=== PATIENT | female | born 1990 | race African-American/Black ===

== ENCOUNTER 2019-05-30 08:54 | Emergency (ER) | payer OTHER, SELFPAY ==
--- NOTE | ~2019-05-30 | XR_ITS ---
EXAMINATION: XR chest 2V EXAM DATE: 05/30/2019 09:28 INDICATION: Cough for 3 weeks. TECHNIQUE: Frontal and lateral projections of the chest obtained and reviewed. There is no prior radha dy for comparison. FINDINGS: The lungs are clear. There are no pleural effusions. The cardiomediastinal silhouette is within normal limits. There is no pneumothorax suspected. The bones and soft tissues are unremarkab le. IMPRESSION: Normal chest x-ray exam. Reviewed, dictated and finalized at location [facility] IMPRESSION: Normal chest x-ray exam.
[2019-05-30 09:10] VITALS: BP 120/61; PULSE 64; RESP 16; TEMP 36.6; O2SAT 100
--- NOTE | 2019-05-30 09:43 | ED.URI ---
HPI - URI/Sore Throat General Chief Complaint: Upper Respiratory Infection Stated Complaint: Asthma Source: patient Mode of arrival: ambulatory Limitations: no limitations History of Present Illness HPI Narrative: Patient is a 29-year-old female who presents complaining of cough x3 weeks. Patient reports a history of asthma and does not have inhaler or nebulizer. She recently finished Augmentin for possible pneumonia. She denies fever, chills or body aches, or chest pain. MD elicited complaint: cough Related Data Allergies Allergy/AdvReac Type Severity Reaction Status Date / Time No Known Allergies Allergy Verified 05/30/19 09:19 Review of Systems Review of Systems: Narrative: CONSTITUTIONAL: Denies fever, chills, or sweats. EYES: Denies visual changes, redness, or discharge. ENT: Denies rhinorrhea, congestion, sore throat, or otalgia. CARDIOVASCULAR: Denies chest pain, palpitations, or edema. RESPIRATORY: Reports cough and wheezing GASTROINTESTINAL: Denies abdominal pain, nausea, vomiting, or diarrhea. GENITOURINARY: Denies dysuria or hematuria. SKIN: Denies rash or itching. MUSCULOSKELETAL: Denies back pain, joint pain, or myalgia. NEUROLOGIC: Denies headache, numbness, dizziness, or weakness. PSYCHIATRIC: Denies anxiety or depression. [facility] Past Medical History Medical History (Updated 05/30/19 @ 09:51 by MEGAN Presley) Asthma DVT (deep vein thrombosis) in Pulmonary embolism UTI (urinary tract infection) Surgical History Surgical History (Updated 05/30/19 @ 09:46 by MEGAN Presley) No pertinent past surgical history Social History Social History (Updated 05/30/19 @ 09:47 by MEGAN Presley) Smoking status: Never smoker Alcohol intake: never Substance use: never Living arrangements: with family Occupation/Education: unemployed Exam Narrative: Exam Narrative: GENERAL: Well-appearing, well-nourished, and in no acute distress. HEAD: Normocephalic, atraumatic. EYES: EOMI. No redness or drainage. Conjunctiva are normal. ENT: Mucous membranes pink and moist. Nares clear. No rhinorrhea. TMs normal bilaterally. Throat normal. Uvula midline. NECK: AROM. Supple. No lymphadenopathy. CHEST: No respiratory distress. Cough noted, intermittent expiratory wheeze HEART: Regular rate and rhythm. No murmur appreciated. Normal peripheral pulses. GI: Soft, nontender without rebound, or guarding. No distention. Bowel sounds normal in all quadrants. MUSCULOSKELETAL: No bony tenderness. EXTREMITIES: Normal range of motion. No edema. SKIN: Warm, dry, no rash. NEURO: No focal deficits. Alert and oriented x3. Gait steady. PSYCH: Normal affect. No signs of depression or anxiety. Course Vital Signs Vital signs: Vital Signs Temperature 36.6 C 05/30/19 09:10 Pulse Rate 64 05/30/19 09:10 Respiratory Rate 16 05/30/19 09:10 Blood Pressure 120/61 05/30/19 09:10 Pulse Oximetry 100 05/30/19 09:10 Temperature 36.6 C 05/30/19 09:10 Pulse Rate 64 05/30/19 09:10 Respiratory Rate 16 05/30/19 09:10 Blood Pressure 120/61 05/30/19 09:10 Pulse Oximetry 100 05/30/19 09:10 MDM - URI/Sore Throat MDM Narrative Medical decision making narrative: Patient's chest x-ray was negative. Patient does not have fever. Patient's lung sounds are clear with intermittent expiratory wheezes noted. Cough noted. Patient most likely having asthma exacerbation. Patient to be started on steroids, and Tessalon. Patient's inhaler and nebulizer to be refilled. Patient is instructed to follow-up with her PCP Dr. Palomares as soon as possible for further evaluation of her asthma. Patient is stable for discharge to home with outpatient follow-up. Differential Diagnosis Differential diagnosis: Likely upper respiratory infection, viral infection and bronchitis Medical Records Attestation: I reviewed the patient's medical records. Critical Care Time Critical Care Ti
== END 2019-05-30 09:59 | disposition home or self-care (01) ==
PROVIDERS: Emergency Provider Nurse Practitioner
DX: J06.9 Acute upper respiratory infection, unspecified (principal); J45.901 Unspecified asthma with (acute) exacerbation; Z86.718 Personal history of other venous thrombosis and embolism; Z86.711 Personal history of pulmonary embolism
CPT/HCPCS: 71046; 99213; G0463

== ENCOUNTER 2023-06-01 10:35 | Emergency (ER) | payer OTHER, SELFPAY ==
[2023-06-01 10:53] VITALS: BP 112/56; PULSE 63; RESP 16; TEMP 36.8; O2SAT 100
--- NOTE | 2023-06-01 11:37 | ED.FEMALEGU ---
HPI - Female Genitourinary General Chief complaint: Urogenital-Female Stated complaint: UTI/Right Shoulder Pain Time Seen by Provider: 06/01/23 11:37 Source: patient Mode of arrival: ambulatory Limitations: no limitations History of Present Illness HPI Narrative: 33-year-old female presents with complaint of right shoulder pain for 2-3 days. Started after she took dileep down from her hair. Patient states she had arms up in the air for over an hour to undo her dileep. Patient also reports urinary frequency, urgency, dysuria for the past week. No abdominal or back pain. Afebrile. All systems reviewed and negative except as noted above. Related Data Allergies Allergy/AdvReac Type Severity Reaction Status Date / Time No Known Allergies Allergy Verified 06/01/23 11:06 Review of Systems Review of Systems: CONSTITUTIONAL: Denies fever, chills, or sweats. EYES: Denies visual changes, redness, or discharge. ENT: Denies rhinorrhea, congestion, sore throat, or otalgia. CARDIOVASCULAR: Denies chest pain, palpitations, or edema. RESPIRATORY: Denies cough or dyspnea. GASTROINTESTINAL: Denies abdominal pain, nausea, vomiting, or diarrhea. GENITOURINARY: Reports dysuria, frequency. Denies hematuria. SKIN: Denies rash or itching. MUSCULOSKELETAL: Denies back pain or myalgia. Reports right shoulder pain. NEUROLOGIC: Denies headache, numbness, or weakness. PSYCHIATRIC: Denies anxiety or depression. All other systems reviewed are negative, except as documented in HPI. PMFSH Past Medical History Medical History (Updated 06/01/23 @ 11:48 by Jonelle Fernando NP) Asthma DVT (deep vein thrombosis) in Pulmonary embolism UTI (urinary tract infection) Surgical History Surgical History (Updated 05/30/19 @ 09:46 by Nilsa Mejia, MEGAN) No pertinent past surgical history Social History Social History (Updated 05/30/19 @ 09:47 by Nilsa Mejia, MEGAN) Smoking status: Never smoker Alcohol intake: never Substance use: never Living arrangements: with family Occupation/Education: unemployed Comments At time of signature, agree with nursing past medical, surgical, social and family history. There is no relevant family history pertinent to the presenting complaint. Exam Narrative: GENERAL: This is a well-nourished, well-developed patient, in no apparent distress. HEAD: normocephalic, atraumatic. EYES: PERRL. Sclera clear/white. Vision is grossly intact. EARS: External ears normal NOSE: External nose normal NECK: Neck supple, non-tender without lymphadenopathy, masses or thyromegaly. CARDIOVASCULAR: Regular rate and rhythm without murmurs, gallops, or rubs. RESPIRATORY: Clear to auscultation. Breath sounds equal bilaterally. No wheezes, rales, or rhonchi. SKIN: warm, Dry, intact with no suspicious lesions or rash, good texture and turgor. NEURO: awake, alert, and oriented to person, place and time. There were no obvious focal neurologic abnormalities. EXTREMITIES: generalized tenderness to right shoulder. No swelling noted. Distal neurovascularly intact. Range of motion normal but patient appears to be in pain with movement. Course Course Level of Care: Express Care Visit Vital Signs Vital signs: Vital Signs Temperature 36.8 C 06/01/23 10:53 Pulse Rate 63 06/01/23 10:53 Respiratory Rate 16 06/01/23 10:53 Blood Pressure 112/56 L 06/01/23 10:53 Pulse Oximetry 100 06/01/23 10:53 Oxygen Delivery Room Air 06/01/23 10:53 Temperature 36.8 C 06/01/23 10:53 Pulse Rate 63 06/01/23 10:53 Respiratory Rate 16 06/01/23 10:53 Blood Pressure 112/56 L 06/01/23 10:53 Pulse Oximetry 100 06/01/23 10:53 Oxygen Delivery Room Air 06/01/23 10:55 Reviewed MDM - Female Genitourinary MDM Narrative Medical decision making narrative: patient's urinalysis normal today. 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
== END 2023-06-01 11:57 | disposition home or self-care (01) ==
PROVIDERS: Emergency Provider Nurse Practitioner Family
DX: M77.8 Other enthesopathies, not elsewhere classified (principal); R35.0 Frequency of micturition; J45.909 Unspecified asthma, uncomplicated; Z86.718 Personal history of other venous thrombosis and embolism; Z86.711 Personal history of pulmonary embolism
CPT/HCPCS: 81003; 99213; G0463

== ENCOUNTER 2023-07-30 08:39 | Emergency (ER) | payer OTHER, SELFPAY ==
--- NOTE | 2023-07-30 08:48 | ED.URI ---
HPI - URI/Sore Throat General Chief Complaint: Upper Respiratory Infection Stated Complaint: wheezing,SOB,cough,body aches Time Seen by Provider: 07/30/23 09:25 Source: patient and RN notes reviewed Mode of arrival: ambulatory Limitations: no limitations History of Present Illness HPI Narrative: 33-year-old female with history of asthma presents with concern for cough, wheezing, shortness of breath, body aches. Reports she has been using her albuterol inhaler 4-5 times daily, she last used it 2 hours ago. She reports hoarse voice. She reports fever. MD elicited complaint: cough Related Data Home Medications Medication Instructions Recorded Confirmed fluticasone propionate 50 See Rx Instructions .Route .COMPLEX 07/30/23 07/30/23 mcg/actuation nasal spray,suspension Allergies Allergy/AdvReac Type Severity Reaction Status Date / Time No Known Allergies Allergy Verified 07/30/23 08:40 Review of Systems Review of Systems: CONSTITUTIONAL: Reports malaise, fever. EYES: Denies visual changes, redness, or discharge. ENT: Reports rhinorrhea, congestion, sinus pain CARDIOVASCULAR: Denies chest pain, palpitations, or edema. RESPIRATORY: Reports cough, wheezing, dyspnea. GASTROINTESTINAL: Denies abdominal pain, nausea, vomiting, diarrhea SKIN: Denies rash or itching. MUSCULOSKELETAL: Reports myalgia. NEUROLOGIC: Denies headache. All systems reviewed & are unremarkable except as noted in HPI and below PMFSH Past Medical History Medical History (Updated 07/30/23 @ 09:37 by Zaynab Caputo NP) Asthma DVT (deep vein thrombosis) in Pulmonary embolism UTI (urinary tract infection) Surgical History Surgical History (Updated 05/30/19 @ 09:46 by Nilsa Mejia, BRASS FINISHER) No pertinent past surgical history Social History Social History (Updated 05/30/19 @ 09:47 by Nilsa Mejia, BRASS FINISHER) Smoking status: Never smoker Alcohol intake: never Substance use: never Living arrangements: with family Occupation/Education: unemployed Comments At time of signature, agree with nursing past medical, surgical, social and family history. There is no relevant family history pertinent to the presenting complaint Exam Narrative: GENERAL: Well-appearing, well-nourished, and in no acute distress. HEAD: Normocephalic EYES: PERRLA, conjunctivae clear ENT: Nares clear, turbinates edematous and erythematous, clear discharge. Mucous membranes moist. TM pearly arrieta with dull light reflex bilaterally; no tragal tenderness. Oropharynx not erythematous without lesions. Tonsils not enlarged and without exudate, no drooling, no hoarseness, no trismus, uvula midline. NECK: Supple. No lymphadenopathy CHEST: Scattered wheeze, otherwise Clear to auscultation, breath sounds equal. No rhonchi, rales, or stridor. No respiratory distress, speaks in full sentences. HEART: Regular rate and rhythm. No murmur heard. SKIN: Warm, dry, no rash. NEURO: Alert and oriented x3. PSYCH: Normal mood and affect Course Course Emergency Course: Patient is aware of diagnosis, understands and agrees to treatment plan. Anticipatory guidance given. Patient agrees to follow-up as directed and is aware of reasons to seek care at the emergency department. Portions of this record may have been created with voice recognition software Level of Care: Express Care Visit Vital Signs Vital signs: Reviewed. MDM - URI/Sore Throat MDM Narrative Medical decision making narrative: Differential diagnosis considered: Rodriguez virus, strep pharyngitis, allergic rhinitis, upper respiratory tract infection, sinusitis, rhinosinusitis, nasopharyngitis. viral pharyngitis, otitis media, otitis externa, pneumonia, bronchitis, viral cough syndrome, viral syndrome, and influenza. Exam findings show no acute concerns or changes; patient is non-toxic appearing and is in no distress. Patient is appropriate for outpatient treatment and follow-up. Lab Data
[2023-07-30 08:59] VITALS: BP 119/75; PULSE 75; RESP 16; TEMP 36.4; O2SAT 99
== END 2023-07-30 09:46 | disposition home or self-care (01) ==
PROVIDERS: Emergency Provider Nurse Practitioner
DX: J40 Bronchitis, not specified as acute or chronic (principal); Z20.822 Contact with and (suspected) exposure to COVID-19; J45.909 Unspecified asthma, uncomplicated; Z86.718 Personal history of other venous thrombosis and embolism; Z86.711 Personal history of pulmonary embolism
CPT/HCPCS: 87081; 87426; 87804; 87880; 99213; G0463

== ENCOUNTER 2024-09-12 12:44 | Emergency (ER) | payer OTHER, SELFPAY ==
--- NOTE | 2024-09-12 12:51 | ED_ITS ---
HPI - Headache General Chief Complaint: Headache Stated Complaint: shortness of breath/head ache Related Data Home Medications ?Medication ?Instructions ?Recorded ?Confirmed ?Last Taken ?Type fluticasone propionate 50 See Rx Instructions .Route .COMPLEX 07/30/23 07/30/23 Unknown History mcg/actuation nasal spray,suspension Allergies Allergy/AdvReac Type Severity Reaction Status Date / Time No Known Allergies Allergy Verified 07/30/23 08:40 [facility] Past Medical History Medical History (Updated 07/31/23 @ 00:01 by Saji Alvarez) UTI (urinary tract infection) Pulmonary embolism Asthma DVT (deep vein thrombosis) in Surgical History Surgical History (Updated 05/30/19 @ 09:46 by Nilsa Mejia, APPLICATION HELPER) No pertinent past surgical history Social History Social History (Updated 05/30/19 @ 09:47 by Nilsa Mejia, APPLICATION HELPER) Smoking status: Never smoker Alcohol intake: never Substance use: never Living arrangements: with family Occupation/Education: unemployed Discharge Plan Discharge Patient Language: Nepali Prescriptions: No Action albuterol sulfate 90 mcg/actuation HFA aerosol inhaler 2 puff INHALATION QID PRN (Reason: shortness of breath or wheezing) Qty: 6.7 0RF albuterol sulfate 5 mg/mL solution for nebulization 2.5 mg INHALATION Q6H PRN (Reason: shortness of breath or wheezing) Qty: 20 0RF fluticasone propionate 50 mcg/actuation spray,suspension See Rx Instructions .ROUTE .COMPLEX Rx Instructions: Rx albuterol sulfate 2.5 mg /3 mL (0.083 %) solution for nebulization 2.5 mg inhalation Q4H PRN (Reason: shortness of breath or wheezing) Qty: 75 0RF methylprednisolone [Medrol (Delon)] 4 mg tablets,dose pack See Rx Instructions .ROUTE .COMPLEX Qty: 21 0RF Rx Instructions: orally per package directions albuterol sulfate 90 mcg/actuation HFA aerosol inhaler 2 puff INHALATION QID PRN (Reason: shortness of breath or wheezing) Qty: 8.5 0RF Follow-up/Referrals: Jelani,Blanka [Other]
--- NOTE | 2024-09-12 12:53 | ED_ITS ---
HPI - General Adult General Chief complaint: Headache Stated complaint: shortness of breath/head ache Source: patient, RN notes reviewed and old records reviewed Mode of arrival: ambulatory Limitations: no limitations History of Present Illness HPI narrative: 34-year-old female presents to the [facility] with concerns of 1 week of cough, right-sided chest discomfort, tightness. Patient with a history of asthma. Denies fevers. Reports that she was seen on September 05 at [facility], reports she had a workup for a PE which she reports is negative Has apt with PCM 09/15 Related Data Home Medications ?Medication ?Instructions ?Recorded ?Confirmed ?Last Taken ?Type fluticasone propionate 50 See Rx Instructions .Route .COMPLEX 07/30/23 07/30/23 Unknown History mcg/actuation nasal spray,suspension Allergies Allergy/AdvReac Type Severity Reaction Status Date / Time No Known Allergies Allergy Verified 09/12/24 13:03 Review of Systems Review of Systems: All systems reviewed & are unremarkable except as noted in HPI and below Constitutional: Constitutional: Reports no additional constitutional complaints ENT: Reports system reviewed and no additional complaints, except as documented Cardiovascular: Cardiovascular: Reports no additional cardiovascular complaints, Denies chest pain and Denies dyspnea Respiratory: Respiratory: Reports as per HPI, Denies chest congestion, Reports cough, Reports pain with cough and Reports dyspnea Musculoskeletal: Musculoskeletal: Reports no additional musculoskeletal complaints Integumentary/Breasts: Skin/Breast: Reports system reviewed and no additional complaints, except as docu PMFSH Past Medical History Medical History UTI (urinary tract infection) Pulmonary embolism Asthma DVT (deep vein thrombosis) in Surgical History Surgical History No pertinent past surgical history Social History Social History Smoking status: Never smoker Alcohol intake: never Substance use: never Living arrangements: with family Occupation/Education: unemployed Comments At the time of my signature, I reviewed and agree with the nursing past medical, surgical, social, and family history. There is no relevant family history pertinent to the patient complaint. Exam Const: General: cooperative, healthy appearing, comfortable, no acute distress, well developed, alert and well nourished Nutritional Appearance: well nourished Orientation/consciousness: patient oriented x3 Limitations: no limitations HENMT: Head: normal to inspection Ears: hearing grossly normal bilaterally, external ears normal, TM's normal bilaterally, EAC's normal, mastoids normal and no periauricular adenopathy Mouth: Yes Normal oral and palatal mucosa present, Yes lip normal, Yes tongue normal and Yes moist mucous membranes Throat: posterior oropharynx normal, uvula midline and no uvular edema Eyes: General: appearance normal, both eyes and all related structures Alignment and Position: alignment normal Neck: Neck: normal visual inspection, full ROM, no lymphadenopathy and no meningeal signs Chest: Chest palpation & inspection: normal inspection of the chest Resp: Effort & Inspection: normal respiratory effort and able to speak in complete sentences Auscultation: clear to auscultation bilaterally, no crackles, no rales, no rhonchi and no wheezes Cardio: Rate: regular rate Skin: General skin exam: normal color and no rashes or lesions noted Neuro: General: patient oriented x3, gait normal, moves all extremities and no meningeal signs Cognition (Neuro): normal cognition Speech: normal speech Gait exam (Neuro): Normal gait present Extrem: General: normal to inspection, full ROM, capillary refill normal and normal gait Psych: Appearance: grossly normal and well kempt Mental Status: mental status grossly normal Speech and movement: Normal speech and movement present and Clear speech present Affect: normal affect Attitude: cooperative Course Course Level of Care: Express Care Visit Vital Signs Vital signs: Vital Signs Temperature 98 F 09/12/24 12:55 Pulse Rate 52 L 09/12/24 12:55 Respiratory Rate 14 09/12/24 12:55 Blood Pressure 122/71 09/12/24 12:55 Pulse Oximetry 100 09/12/24 12:55 Oxygen Delivery Room Air 09/12/24 12:55 Temperature 98 F 09/12/24 12:55 Pulse Rate 52 L 09/12/24 12:55 Respiratory Rate 14 09/12/24 12:55 Blood Pressure 122/71 09/12/24 12:55 Pulse Oximetry 100 09/12/24 12:55 Oxygen Delivery Room Air 09/12/24 12:55 Reviewed Medical Decision Making MDM Narrative Medical decision making narrative: Patient sitting comfortably in exam room. Nontoxic, vitals stable. Patient in no acute distress Patient presents with 1 week of cough, congestion. Has a history of asthma Had a complete workup per patient at [facility] 05 September Patient has appointment with primary care provider on . Patient requesting a refill on her albuterol. Requesting a work note Patient appropriate for outpatient treatment with close follow-up. Discuss signs and symptoms to proceed to the emergency room which she verbalized understanding. Discharge instructions reviewed with patient, as well as provided in writing per nursing staff. The instructions also include specific and strict return/GO TO THE ER as well as f/u information. All questions have been answered, and the patient deny any further questions with discharge and discharge plan. Some parts of this dictation were generated by voice recognition software and may contain typographical and/or grammatical inaccuracies. Differential Diagnosis Differential Diagnosis: Bronchitis, pneumonia, URI, Medical Records Medical records reviewed: Yes I reviewed the external patient's medical records. Vital Signs Vital Signs: Vital Signs Temperature 98 F 09/12/24 12:55 Pulse Rate 52 L 09/12/24 12:55 Respiratory Rate 14 09/12/24 12:55 Blood Pressure 122/71 09/12/24 12:55 Pulse Oximetry 100 09/12/24 12:55 Oxygen Delivery Room Air 09/12/24 12:55 Temperature 98 F 09/12/24 12:55 Pulse Rate 52 L 09/12/24 12:55 Respiratory Rate 14 09/12/24 12:55 Blood Pressure 122/71 09/12/24 12:55 Pulse Oximetry 100 09/12/24 12:55 Oxygen Delivery Room Air 09/12/24 12:55 Reviewed Lab Data Lab results reviewed: Yes I reviewed the patient's lab results. Labs: Reviewed Critical Care Time Critical Care Time Critical Care Time: No Discharge Plan Discharge Clinical Impression: Bronchitis, History of asthma Patient Disposition: Home Condition: Stable Instructions: Antibiotic Form, Acute Bronchitis (ED) Additional Instructions: Follow-up with your primary care provider as already scheduled Use your inhaler every 4-6 hours. If your needing to use it more frequently please proceed to the nearest emergency room Take steroids as prescribed Patient Language: Namibian Prescriptions: New albuterol sulfate 90 mcg/actuation HFA aerosol inhaler 2 puff inhalation QID PRN (Reason: shortness of breath or wheezing) Qty: 6.7 0RF methylprednisolone [Medrol (Delon)] 4 mg tablets,dose pack See Rx Instructions PO .COMPLEX Qty: 21 0RF Rx Instructions: orally per package directions No Action albuterol sulfate 90 mcg/actuation HFA aerosol inhaler 2 puff INHALATION QID PRN (Reason: shortness of breath or wheezing) Qty: 6.7 0RF albuterol sulfate 5 mg/mL solution for nebulization 2.5 mg INHALATION Q6H PRN (Reason: shortness of breath or wheezing) Qty: 20 0RF fluticasone propionate 50 mcg/actuation spray,suspension See Rx Instructions .ROUTE .COMPLEX Rx Instructions: Rx albuterol sulfate 2.5 mg /3 mL (0.083 %) solution for nebulization 2.5 mg inhalation Q4H PRN (Reason: shortness of breath or wheezing) Qty: 75 0RF methylprednisolone [Medrol (Delon)] 4 mg tablets,dose pack See Rx Instructions .ROUTE .COMPLEX Qty: 21 0RF Rx Instructions: orally per package directions albuterol sulfate 90 mcg/actuation HFA aerosol inhaler 2 puff INHALATION QID PRN (Reason: shortness of breath or wheezing) Qty: 8.5 0RF Follow-up/Referrals: Jelani,Blanka [Other] - 2 Days Stand Alone Forms: Work/School Release IP Time of Disposition: 13:08
[2024-09-12 12:55] VITALS: BP 122/71; PULSE 52; RESP 14; TEMP 36.6; O2SAT 100
== END 2024-09-12 13:15 | disposition home or self-care (01) ==
PROVIDERS: Emergency Provider Nurse Practitioner
DX: J40 Bronchitis, not specified as acute or chronic (principal); J45.909 Unspecified asthma, uncomplicated; Z86.711 Personal history of pulmonary embolism; Z86.718 Personal history of other venous thrombosis and embolism
CPT/HCPCS: 99213; G0463